=== PATIENT | male | born 1930 | race Hispanic/Latino ===

== ENCOUNTER 2017-08-18 06:30 | Day surgery (SDC) | payer OTHER ==
[2017-08-09 15:17] VITALS: BP 116/60
[2017-08-09 15:39] LABS: BASOPHILS % (AUTO) 0.3 % (0.0-5.0); EOSINOPHILS % (AUTO) 2.7 % (0.0-8.0); HEMATOCRIT 32.9 % (42-54); LYMPHOCYTES % (AUTO) 19.7 % (21.0-51.0); MEAN CORPUSCULAR HEMOGLOBIN 30.9 pg (27.0-33.0); MEAN CORPUSCULAR HGB CONC 34.6 g/dL (32.0-36.0); MEAN CORPUSCULAR VOLUME 89.3 fL (79-99); MONOCYTES % (AUTO) 9.5 % (3.0-13.0); NEUTROPHILS % (AUTO) 67.8 % (40.0-77.0); PLATELET COUNT (AUTO) 189 K/uL (130-400); RED BLOOD CELL COUNT(AUTO) 3.68 MIL/uL (4.50-6.20); RED CELL DISTRIBUTION WIDTH 14.7 % (11.0-15.5); WHITE BLOOD COUNT (AUTO) 6.2 K/uL (4.8-10.8)
[2017-08-09 15:47] LABS: CREATININE 1.6 mg/dL (0.5-1.5); POTASSIUM 4.4 mmol/L (3.5-5.1)
[2017-08-18] VITALS (13 sets, daily range): BP systolic 107–141; BP diastolic 54–75
[~2017-08-18] VITALS: Ht 172.7 cm; Wt 83.6 kg
[~2017-08-18 06:30] MED LIST: AEC81 PO; AMLO2.5T PO; CHOL100018 PO; METO-391 PO; SIMV20TA6 PO; TAMS0.4C32 PO
[2017-08-18] MEDS ORDERED: GLYCOPYRROLATE 0.2 MG/ML 5 ML VIAL ONE (06:44)
[2017-08-18] MEDS ORDERED: PROPOFOL 10 MG/ML 20ML VIAL IV ONE (06:44)
[2017-08-18] MEDS ORDERED: DEXAMETHASONE SOD PHOSPHATE 10MG/ML 1ML VIAL ONE ×2 (06:44→08:46)
[2017-08-18] MEDS ORDERED: LIDOCAINE PF 2% 5ML ABBOJECT ONE (06:44)
[2017-08-18] MEDS ORDERED: MIDAZOLAM HCL 1 MG/ML 2ML VIAL ONE (06:44)
[2017-08-18] MEDS ORDERED: FENTANYL CITRATE PF 50 MCG/1 ML 2ML VIAL ONE (06:45)
[2017-08-18] MEDS ORDERED: LACTATED RINGERS 1000ML 1,000 ML IV ONE (07:06)
[2017-08-18] MEDS: CEFTRIAXONE SODIUM 1 GM IVP ONE ×2 (07:22→08:01)
[2017-08-18] MEDS ORDERED: VIT1CAPS26 PO (07:25)
[2017-08-18] MEDS ORDERED: METOCLOPRAMIDE 10 MG/2 ML VIAL ONE (08:46)
[2017-08-18] MEDS ORDERED: ONDANSETRON HCL MDV 20ML 2 MG/ML VIAL ONE (08:46)
[2017-08-18] MEDS ORDERED: OPIUM/BELLADONNA ALKALOIDS 1 EACH SUPP.RECT RC ONE (09:23)
[2017-08-18] MEDS ORDERED: PHENAZOPYRIDINE HCL 200 MG TABLET ONE (10:06)
== END 2017-08-18 10:43 | disposition home or self-care (01) ==
LOC: DAH 06:30
PROVIDERS: ATTEND Urology
DX: N40.1 Benign prostatic hyperplasia with lower urinary tract symptoms (principal); R35.1 Nocturia; Z87.891 Personal history of nicotine dependence; I12.9 Hypertensive chronic kidney disease with stage 1 through stage 4 chronic kidney disease, or unspecified chronic kidney disease; N18.3 Chronic kidney disease, stage 3 (moderate); I25.10 Atherosclerotic heart disease of native coronary artery without angina pectoris; M19.90 Unspecified osteoarthritis, unspecified site; F41.9 Anxiety disorder, unspecified; R06.02 Shortness of breath
CPT/HCPCS: 36415; 52648; 80048; 85025; 93005; A4218; A4344; A4354; A4358; A4510; A4600; J0696; J1100 ×2; J2001; J2250; J2704; J2765; J3010; J3490; J7030; J7120